=== PATIENT | female | born 1965 | race Caucasian/White ===

== ENCOUNTER 2017-08-27 09:08 | Emergency (ER) | payer OTHER ==
[~2017-08-27] VITALS: Ht 167.6 cm; Wt 117.3 kg
[~2017-08-27 09:08] MED LIST: ASPIR 8181 M1 PO; BENAZEPRIL HCL40 MG PO; BYETTA PEN250 MCG/M1 PO; CALAN120 MG PO; CELEXA20 MG PO; CRANBERRY400 MG PO; CRANBERRY500 M2 PO; FORTAMET1000 M1 PO; HYDROCHLOROTHIA25 MG PO; IBUPROFEN600 MG PO; LANTUS (UNITS)1 UNIT SC; LANTUS 3 M100 UNITS1 SC; METFORMIN HCL1000 MG PO; NEURONTIN300 MG PO; NORVASC10 MG PO; REPAGLINIDE1 MG PO; SIMVASTATIN20 M1 PO; STOOL SOFTENER100 MG PO; [UNRECOGNIZED DRUG - OTHER]; [UNRECOGNIZED DRUG - OTHER] PO
[2017-08-27 09:31] LABS: POINT-OF-CARE METER ID UU13113778
[2017-08-27 10:56] LABS: CARBON DIOXIDE (BICARBONATE) 24.5 MEQ/L (20-31)
[2017-08-27 10:57] LABS: MCH 28.9 PG (29.0-34.0); MCHC 33.7 G/DL (30.0-36.0); MEAN PLAT.VOLUME 9.8 uM^3 (9.5-12.4); PLATELET COUNT 233 K/uL (156-360); RBC DIS.WIDTH-SD 40.1 % (39-53); RED BLOOD COUNT 4.77 M/uL (3.80-5.20); WHITE BLOOD COUNT 8.7 K/uL (4.1-10.2)
[2017-08-27 11:11] LABS: CHLORIDE 98 mEq/L (99-109); POTASSIUM 4.7 mEq/L (3.7-5.4); SODIUM 132 mEq/L (136-147)
[2017-08-27 11:14] LABS: ANION GAP 13 MEQ/L (2-14)
[2017-08-27 11:15] LABS: GLUCOSE 414 mg/dL (70-99)
[2017-08-27 11:16] LABS: GFR ESTIMATE (CALCULATED) > 59 mL/min/
[2017-08-27 11:17] LABS: UREA NITROGEN (BUN) 16 mg/dL (9-23)
[2017-08-27 11:21] LABS: TROP-I INTERPRETATION NEGATIVE; TROPONIN-I < 0.01 ng/mL (0.0-0.30)
[2017-08-27 11:40] LABS: ADD MIUA? NO; BILIRUBIN NEGATIVE; BLOOD NEGATIVE; COLOR STRAW ((YELLOW)); GLUCOSE (STRIP) >=500; KETONES 20; LEUKOCYTES NEGATIVE; NITRITE NEGATIVE; PROTEIN (STRIP) NEGATIVE; SPECIFIC GRAVITY 1.033 (1.000-1.030); UCUL ADDED? NO; UROBILINOGEN 0.2 MG/DL (0.2-1.0)
[2017-08-27 12:06] LABS: POINT-OF-CARE METER ID UU13113747
[2017-08-27 13:25] LABS: POINT-OF-CARE METER ID UU13113747
[2017-08-27 15:44] VITALS: BP 97/66
== END 2017-08-27 15:45 | disposition home or self-care (01) ==
LOC: EME 09:08
PROVIDERS: Physician Assistant Medical
DX: E11.65 Type 2 diabetes mellitus with hyperglycemia (principal); R00.0 Tachycardia, unspecified; R11.0 Nausea; R06.02 Shortness of breath; I10 Essential (primary) hypertension; Z79.4 Long term (current) use of insulin
CPT/HCPCS: 71275; 80048; 81003; 82010; 82803; 82948; 84484; 85027; 85379; 93005; 99281; 99285; J7030